=== PATIENT | female | born 1995 | race Two or more races ===

== ENCOUNTER 2024-09-07 15:34 | Outpatient (AMB) | payer MEDICARE, SELFPAY ==
[2024-09-07 15:55] VITALS: BP 104/67; PULSE 84; RESP 16; TEMP 36.2; O2SAT 99
--- NOTE | 2024-09-07 15:55 | OBCLNT_ITS ---
Vital Signs 09/07/24 15:55 Weight 50.887 kg Weight Measurement Method Standing Scale BP 104/67 Blood Pressure Source Automatic Cuff Blood Pressure Location Left Upper Arm Position Sitting Respiration 16 Pulse 84 Pulse Source Monitor Temp 97.2 F Temp Source Oral Pulse Oximetry (%) 99 Oxygen Delivery Method Room Air Allergies/Home Meds Allergies & Medications Allergies No Known Allergies Allergy (Verified 09/07/24 15:56) Medication Reconciliation No Known Home Medications 09/07/24 [History Confirmed 09/07/24] Intake Visit Data Collection New Patient or Established: New Patient (never been to [facility]) Reason for Visit:: Seen by Clinical Staff ONLY (RN/MA): No Quality Assurance Tester Required: No Do You Feel Safe at Home: Yes Authorities Contacted: N/A PCP or OBGYN visit in last 3 months: No Hx Now: Yes Are you currently on any form of Control: No Last menstrual period: 03/04/24 Pain Present Currently: No Pain Scale Used: Garcia-Romero/Numerical Pain scale:: 0 Smoking Status Smoking Status: Never smoker Questionnaires Covid-19 Vaccine Questionnaire Has patient been vacinated for Covid-19 Have you been vacinated for Covid-19: No PHQ-9 PHQ-2 Over the last 2 weeks, how often have you been bothered by any of the following problems? 1. Little interest or pleasure in doing things: not at all 2. Feeling down, depressed, or hopeless: not at all Total score: 0 PHQ-9 3. Trouble falling or staying asleep, or sleeping too much: Not at all 4. Feeling tired or having little energy: Not at all 5. Poor appetite or overeating: Not at all 6. Feeling bad about yourself - or that you are a failure or have let yourself or your family down: Not at all 7. Trouble concentrating on things, such as reading the newspaper or watching television: Not at all 8. Moving or speaking so slowly that other people could have noticed? - Or the opposite - being so fidgety or restless that you have been moving around a lot more than usual: not at all 9. Thoughts that you would be better off or of hurting yourself in some way: Not at all Total score: 0 If you checked off any problems, how difficult have these problems made it for you to do your work, take care of things at home, or get along with other people?: not difficult at all Source: Developed by Drs. Nathaniel Teran, Yanna Do, Raj Avilez and colleagues, with an educational patsy from [employer]. Depression screen completed yes Social History Living Situation History Marital Status: Lives With: Family Housing: House Tobacco History Smoking Status: Never smoker Second Hand Smoke Exposure: No Alcohol History Alcohol Intake: Never Domestic Abuse History Do You Feel Safe at Home: Yes Past Medical History Past Medical History Have you ever been diagnosed with any of the following: History of Present Illness HPI Narrative This is a 29-year-old 4 para 3 Ab0. For her first visit here at [facility] OB clinic. Patient is a transfer care from [facility]. Her last period is March 04, 2024. Gives due date December 07, 2024. Patient has a history of 2 C-sections and 1 . Patient had a her first baby then she had a . And then a repeat in [place] her last as well. That was for tachycardia. Patient denies social habits. Denies surgery. Denies any chronic illnesses. Reports to be in good health. Patient is happy about the . Denies labor complaints. Reports good movement. Denies any OB complaints at this time. She has a follow- up maternal- medicine referral October 13. And she does not have any records available yet OB Initial Visit OB Flowsheet OB Flowsheet Initial Weight: Not Recorded Date -?-?-?-?-?-?-?-?-?-?-?-?- EGA Weight Edema CTX Effacement BP Fundal ht Pres Dilation Effacement Station Visit Note Alb Glu FHR Mov 09/07/24 -?-?-?-?-?-?-?-?-?-?--?-?- 26w 5d 50.887 kg absent absent 104/67 27 unknown 4 para 3 for initial OB appointment. Patient is a transfer care from [facility]. IUP at 27 weeks. No records available at this time. Patient has been going to [facility] in [place] for evaluation and follow-up on ultrasounds. Denies social habits. And denies any chronic illness. No complaints of labor. Reports good movement. Patient is compliant with vitamins and no OB complaints at this time. Ordered third trimester labs. Advised on medical release of records from [facility]. And patient has a follow-up [facility] October 13. And will schedule with OB at 32 weeks. Return in 3 weeks visit 4 para 3 for initial OB appointment. Patient is a transfer care from [facility]. IUP at 27 weeks. Previous c/s x2. No records available at this time. Patient has been going to [facility] in [place] for evaluation and follow-up on ultrasounds. Denies social habits. And denies any chronic illness. No complaints of labor. Reports good movement. Patient is compliant with vitamins and no OB complaints at this time. Ordered third trimester labs. Advised on medical release of records from [facility]. And patient has a follow-up [facility] October 13. And will schedule with OB at 32 weeks. Return in 3 weeks visit 146 active Menstrual History Menstrual reliability: definite Flow: normal Menstrual regularity: regular Monthly: Yes Age at menarche: 10 On control pills at conception: No Associated symptoms (LMP): Reports nausea OB History : 4 Para: 3 Hx # Pregnancies: 0 Hx Total # of Abortions (Spontaneous & Elective): 0 # of Living Children: 3 Delivery History 1st : date: 09/23/16 sex: male Delivery type: History of depression before or after : No 2nd : date: 03/23/20 sex: male Delivery type: History of depression before or after : No 3rd : date: 08/31/21 sex: male Delivery type: Delivery complications: repeat c/s in [place] for tachycardia History of depression before or after : No Infection History & Risk Evaluation History of STDs: none HIV risk evaluation: low risk Hepatitis B risk evaluation: low risk Patient or partner has history of Genital Herpes: No Genetic Screening & History Genetic Screening/Teratology Counseling - Includes patient, baby's father, or anyone in either family with: 1. Patient's age 35 years or older as of estimated date of delivery: No 2. Thalassemia (Ukrainian, Emirati, Mediterranean, or Background); MCV less than 80: No 3. Neural Tube Defect (Meningomyelocele, Spina Bifida, or Anencephaly): No 4. Congenital Heart Defect: No 5. Down Syndrome: No 6. Luis Angel-Sachs (Ashkenazi Church, Cajun, [place]): No 7. Kellie Disease (Ashkenazi Church): No 8. Familial Dysautonomia (Ashkenazi Church): No 9. Sickle Cell Disease or Trait (): No 10. Hemophilia or other blood disorders: No 11. Muscular Dystrophy: No 12. Cystic Fibrosis: No 13. Mariann's Chorea: No 14. Mental Retardation/Autism: No 15. Other inherited genetic or chromosomal disorder: No 16. Maternal Metabolic Disorder (EG,TYPE 1 Diabetes, PKU): No 17. Patient or baby's father had a child with defects not listed above: No 18. Recurrent loss or a stillbirth: No 19. Medications (including supplements, vitamins, herbs or otc drugs)/illicit/recreational drugs/alcohol since last menstrual period: No 20. Any other: No Infection History 1. Live with someone with TB or exposed to TB: No 2. Rash or viral illness since last menstrual period: No 3. Hepatitis B,C: No Other (see comments) Source: [employer] Review of Systems Review of Systems Systems Reviewed: All systems reviewed, normal except as documented Gastrointestinal Gastrointestinal: Reports nausea Exam General Limitations: no limitations General Appearance: alert, in no apparent distress, comfortable, cooperative, healthy appearing, well developed and well groomed Head Head exam: atraumatic, normocephalic and normal inspection Chest Chest inspection: Present normal inspection and symmetric chest wall rise Resp Respiratory exam: Present normal lung sounds bilaterally Card Cardiovascular exam: Present regular rate, normal rhythm and normal heart sounds Abdominal Abdominal exam: Present soft (gravid abdomen, FH: 27, fht: 146), normal bowel sounds and scar (vertical skin incision) Psych Psychiatric exam: Present normal affect and normal mood Skin Skin exam: Present warm, dry, intact and normal color Assessment & Plan Diagnosis / Problem List (1) Normal in multigravida in second trimester: Status: Acute (2) Previous section complicating : Status: Acute Plan Advised patient to sign medical release of records and go to [facility] to pickle pumper her records. Ordered third trimester labs. Keep follow-up appointment with maternal- medicine October 13. Reviewed signs symptoms of labor. Increase fluids. Continue vitamins. Discussed diet and exercise. I will call [facility] for sono results. Return in 3 weeks for OB check Office Procedures OB Clinic LOC & Office Proc's Nursing/Assessment Patient Status: Initial/New Patient OB Clinic Nursing Assessment: BP Monitoring, Medication Reconciliation, Update PMH in EMR and Vital Signs OB Clinic Coordination of Care: Consent,records obtained, informed consent, Education Simp Pt/Fam, Lab and Imaging orders and Staff clarify orders New Patient Charge New Patient Point Assignment: [id number] New Patient Point Charge: SCIENTIFIC AFFAIRS MANAGER Level 3 ([id number])
== END 2024-09-07 16:11 | disposition home or self-care (01) ==
LOC: HODSOBC 15:34
PROVIDERS: Referring Provider Advanced Practice Midwife; Supervising Provider Obstetrics & Gynecology; Visit Provider Advanced Practice Midwife
DX: O09.292 Supervision of pregnancy with other poor reproductive or obstetric history, second trimester (principal); Z3A.26 26 weeks gestation of pregnancy; O34.219 Maternal care for unspecified type scar from previous cesarean delivery; Z87.59 Personal history of other complications of pregnancy, childbirth and the puerperium
CPT/HCPCS: 99203; G0463

== ENCOUNTER 2024-11-26 23:04 | Inpatient (IN) | payer MEDICAID, SELFPAY ==
[2024-11-26 23:10] VITALS: BP 120/80; PULSE 83; RESP 100; RESP 17; TEMP 36.7
[2024-11-26 23:18] VITALS: BP 120/80; PULSE 83
[2024-11-26 23:25] VITALS: BMI 27.6
[2024-11-26 23:46] VITALS: BMI 27.6
[2024-11-26 23:49] VITALS: BP 107/61; PULSE 73
[2024-11-27] VITALS (19 sets, daily range): BP systolic 96–122; BP diastolic 56–78; PULSE 59–71; RESP 14–24; TEMP 35.9–37.2; O2SAT 93–100
--- NOTE | 2024-11-27 00:03 | ESHP_ITS ---
Documentation for date of: 11/27/24 OB Labor/Induct. HPI History of Present Illness Chief complaint: Contractions : 4 Para: 3 pregnancies: 0 Living children: 3 History of Abortions: Spontaneous and Elective: 0 History of Vaginal deliveries: 1 History of sections: Yes History of : Yes SAIMA: 12/09/24 Gestational Age (weeks): 38 Gestational Age (days): 2 History of present illness: 29-year-old 4 para 3 with a history of done then repeat presented to labor and delivery triage with contractions every 5 minutes. Patient initially started care at [facility] and then later transferred care and was seen with Rayna Hickman at the [facility] clinic. Patient denies any leakage of fluid or vaginal bleeding and reports adequate movements. Labs Maternal Blood Type: B Pos Labs: Positive: Rubella Titre and Group Beta Strep (Positive urine culture), Negative: RPR, Hepatitis B, HIV, Chlamydia and Gonorrhea and Unknown: Herpes Type 1, Herpes Type 2 and Covid-19 Review of Systems Review of Systems Systems Reviewed: All systems reviewed, normal except as documented Past Medical History Surgical History SURGICAL: Positive Section Meds Home Medications and Allergies Home Medications ?Medication ?Instructions ?Recorded ?Confirmed ?Type vits no.130-ferrous fum 1 tab PO QDAY 5 11/26/24 History 27 mg iron-folic acid 800 mcg tablet ( Vitamin) Allergies Allergy/AdvReac Type Severity Reaction Status Date / Time No Known Allergies Allergy Verified 11/26/24 23:44 OB Exam Physical Exam Vital signs: Pulse BP 73 107/61 11/26/24 23:49 11/26/24 23:49 Constitutional Constitutional: no acute distress Routine HEENT Exam Head: Present normocephalic and atraumatic Eye: Present EOMI and PERRL ENT: Present mucous membranes moist Routine Neck Exam Neck: Present supple and trachea midline Routine Cardiovascular Exam Cardiovascular: Present RRR Routine Abdominal Exam Abdominal: Present soft and normoactive bowel sounds Detailed Labor and Delivery Exam Dilation (cm): 3 Effacement (%): 50 Cervix position: mid station: -3 Consistency: soft Presentation: Vertex Baseline heart rate: 145 monitor accelerations: 15x15 monitor decelerations: None Contraction frequency (min): 5 Routine Extremities Exam Extremities: Present full ROM Routine Skin Exam Skin: Present intact, dry and warm Routine Neurological Exam Neurological: Present alert, oriented X3 and CN II-XII intact Routine Psychiatric Exam Psychiatric: Present normal affect and normal thought process OB Assessment & Plan Assessment and Plan (1) Previous section complicating : Status: Acute Assessment and plan: Admit to inpatient status for repeat low transverse IV access, CBC, type and screen, LR at 125, RPR, COVID-19 test GBS negative Ancef 2 g prior to surgery start Copeland catheter to drainage SCDs for DVT prophylaxis Anesthesia to preop for spinal anesthesia Scheduled for surgery. (2) Group B Streptococcus carrier state affecting : Status: Acute
[2024-11-27] MEDS: RINGERS LACTATED 1000 ML 1,000 ML 100 ML IV (00:10)
[2024-11-27] MEDS: FAMOTIDINE INJ 10 MG/ML VIAL 2 ML 20 MG IV (00:10)
[2024-11-27] MEDS: CITRIC ACID/SODIUM CITR 15 ML UDC (BICITRA) 30 ML PO (00:11)
[2024-11-27] MEDS: ceFAZolin/D5W 2 GM IV 2 GM/100 ML BAG IV (00:11)
[2024-11-27 00:19] LABS: Basophils # (Auto) 0.0 Thou/mm3 (0.0-0.2); Basophils % (Auto) 0 % (0-2.5); Eosinophils # (Auto) 0.1 Thou/mm3 (0.0-0.5); Eosinophils % (Auto) 2 % (0-10); Hematocrit 24.9 % (36.0-46.0); Immature Granulocytes Auto 0.03 Thou/mm3 (0.00-0.00); Lymphocytes # (Auto) 2.1 Thou/mm3 (1.0-4.8); Lymphocytes % (Auto) 34 % (10-50); Mean Corpuscular HGB Conc 31.7 g/dl (31.0-37.0); Mean Corpuscular Hemoglobin 24.9 pg (25.0-35.0); Mean Corpuscular Volume 79 fL (80-100); Monocytes # (Auto) 0.4 Thou/mm3 (0.0-0.8); Monocytes % (Auto) 7 % (0-12); Neutrophils # (Auto) 3.4 Thou/mm3 (1.8-7.7); Neutrophils % (Auto) 56 % (37-80); Nucleated Red Blood Cell # 0.06 Thou/mm3 (0.00-0.00); Nucleated Red Blood Cell % 1 /100 WBC (0); Platelet Count 253 Thou/mm3 (140-440); RDW Standard Deviation 49.1 fL (36.4-46.3); Red Blood Count 3.17 Miln/mm3 (4.00-5.20); White Blood Count 6.1 Thou/mm3 (3.6-11.0)
[2024-11-27 00:24] LABS: Hemoglobin 7.9 g/dL (12.0-16.0)
[2024-11-27 00:48] LABS: Syphilis Nonreactive (Nonreactive)
--- NOTE | 2024-11-27 01:09 | PD.GYNPROC ---
Operative Note - ADAPTED PHYSICAL EDUCATION SPECIALIST Procedure Date of procedure: 11/27/24 Procedure Performed: Repeat section with vertical skin and transverse uterine incision Indication: 29-year-old at 38 weeks and 2 days with previous x 2 in labor Anesthesia type: General Procedure description: Informed consent was obtained. The patient was brought to the operating room and identified with two patient identifiers. She was placed in the supine position, and spinal anesthesia was administered. After confirming adequate anesthesia, the abdomen and perineum were prepped and draped in the usual sterile fashion. A Copeland catheter was inserted for continuous bladder drainage. A vertical midline skin incision was made using a scalpel and carried through subcutaneous tissue to the rectus fascia. The previous skin scar was identified and excised in its entirety. The fascia was incised vertically and dissected off the rectus muscles both superiorly and inferiorly. The rectus bellies were in the midline, and the peritoneum was entered bluntly with the surgeon?s finger. The peritoneal opening was extended to allow adequate exposure. An Mk O-ring retractor was placed for optimal visualization. The lower uterine segment was palpated, and the bladder flap was reflected inferiorly. A low transverse uterine incision (Blanche Nair) was made with a scalpel and extended bluntly. The amniotic membranes were ruptured, and clear fluid was released. The fetus was in vertex presentation. The shoulders and body were delivered smoothly with gentle fundal pressure. The umbilical cord was doubly clamped and cut, and the infant was handed to the awaiting team. Cord gases were obtained. The placenta was delivered with gentle traction on the cord. The uterine cavity was cleared of membranes and clots. The hysterotomy angles were secured with Allis clamps. The uterine incision was closed in two layers using #1 Monocryl: the first layer was a running locked suture to approximate the myometrium, and the second layer imbricated the serosa and myometrium. Hemostasis was confirmed. The Mk retractor was removed. Peritoneal edges and rectus muscles were reapproximated. Rectus fascia was closed with running 0 Vicryl. The subcutaneous tissue was irrigated with warm saline, and bleeding points were cauterized using Bovie electrocautery. Subcutaneous tissue was approximated with 3-0 Vicryl. The skin was closed using phan. A sterile dressing was applied. The patient was cleaned, undraped, and transferred to the recovery room in stable and awake condition. She tolerated the procedure well. No complications were encountered. All counts were correct ?2. Estimated blood loss (ml): 700 Complications: none Diagnosis Discharge Diagnosis (1) Group B Streptococcus carrier state affecting : Status: Acute (2) Previous section complicating : Status: Acute (3) Normal in multigravida in second trimester: Status: Acute Problem List Completed Was Problem List Reviewed/Reconciled?: Yes
--- NOTE | 2024-11-27 01:12 | PD.LDDELS ---
Data (Alicea) Data Hx Section: Yes : 4 Term: 3 : 0 Livin Abortions: Spontaneous & Theraputic: 0 Delivery Data (Alicea) Delivery Data Delivered by: DINESH Anesthesia Type Anesthesia type: General
[2024-11-27] MEDS: HYDROmorphone 1 MG/ML PCA SYRINGE 30ML PCA (03:03)
[2024-11-27] MEDS: OXYTOCIN in NS 20 units 20 UNIT/1,000 ML BAG 125 UNIT IV ×2 (05:34→15:37)
--- NOTE | 2024-11-27 08:32 | PD.LDDELS ---
Data (Alicea) Data Hx Section: Yes : 4 Term: 3 : 0 Livin Abortions: Spontaneous & Theraputic: 0 Delivery Data (Alicea) Labor Data Induction/Augmentation Agent: None ROM date: 11/27/24 ROM time: 00:41 Amniotic membrane rupture type: Artificial Amniotic fluid description: Clear Delivery Data Onset of labor date: 11/27/24 Onset of labor time: 00:41 Complete dilation date: 11/27/24 Complete dilation time: 00:41 [place] delivery date: 11/27/24 delivery time: 00:41 Placenta delivery date: 11/27/24 Placenta delivery time: 00:42 Stage 1 total time: Labor - Stage 1 Duration 0 minutes Delivered by: DINESH Delivery nurse: Aime Gomes nurse: Jim WOODARD Phlebotomy Lab Assistant at delivery: No Other staff at delivery: DR MONITEL, NAILA PERDUE, MADELINE Torres RT, AGUILAR Bunn CRNA Delivery Method Delivery method: Classical Presentation: Vertex Anesthesia Type Anesthesia Type: General and Spinal Anesthesia type: General Placenta Placenta delivery description: Manual Removal Cord blood sent to lab: Yes cord blood collection: Cord Blood Type Episiotomy Episiotomy description: None Umbilical Cord cord description: 3 Vessels Data (Alicea) Data order: 1 [place]'s gender: Female weight (gms): 3000 g Weight (pounds): 6 lbs and 9.8 ozs [place] length: 50.8 cm 1 minute: 8 5 minutes: 9
[2024-11-27 12:12] LABS: Basophils # (Auto) 0.0 Thou/mm3 (0.0-0.2); Basophils % (Auto) 0 % (0-2.5); Eosinophils # (Auto) 0.0 Thou/mm3 (0.0-0.5); Eosinophils % (Auto) 0 % (0-10); Hematocrit 29.1 % (36.0-46.0); Hemoglobin 9.7 g/dL (12.0-16.0); Immature Granulocytes Auto 0.06 Thou/mm3 (0.00-0.00); Lymphocytes # (Auto) 1.3 Thou/mm3 (1.0-4.8); Lymphocytes % (Auto) 9 % (10-50); Mean Corpuscular HGB Conc 33.3 g/dl (31.0-37.0); Mean Corpuscular Hemoglobin 26.8 pg (25.0-35.0); Mean Corpuscular Volume 80 fL (80-100); Monocytes # (Auto) 0.4 Thou/mm3 (0.0-0.8); Monocytes % (Auto) 3 % (0-12); Neutrophils # (Auto) 12.5 Thou/mm3 (1.8-7.7); Neutrophils % (Auto) 88 % (37-80); Nucleated Red Blood Cell # 0.03 Thou/mm3 (0.00-0.00); Nucleated Red Blood Cell % 0 /100 WBC (0); Platelet Count 210 Thou/mm3 (140-440); RDW Standard Deviation 47.6 fL (36.4-46.3); Red Blood Count 3.62 Miln/mm3 (4.00-5.20); White Blood Count 14.2 Thou/mm3 (3.6-11.0)
[2024-11-27] MEDS: IBUPROFEN TAB 400 MG TABLET 800 MG PO (19:16)
[2024-11-28] VITALS (7 sets, daily range): BP systolic 101–110; BP diastolic 57–71; PULSE 69–79; RESP 16–18; TEMP 36.6–37.1; O2SAT 95–99
[2024-11-28] MEDS: IBUPROFEN TAB 400 MG TABLET 800 MG PO ×2 (04:58→23:36)
--- NOTE | 2024-11-28 06:56 | ESPR_ITS ---
RE: ROSALIO JOSHI : 1995 DATE OF SERVICE: 11/28/2024 Postop day #1. The patient denies any problem or complaint. She is voiding. She is ambulating. She is tolerating diet. She is passing flatus. She denies any excessive vaginal bleeding. She denies any dizziness or lightheadedness. She denies any chest pain, palpitations, shortness of breath or lower extremity pain. OBJECTIVE: Vital Signs: Blood pressure 102/62, heart rate 72, respirations 16, temperature is 98.7, pulse oximetry is 95% on 1 L of O2. Lungs: Clear to auscultation bilaterally. Heart: Regular rate and rhythm. Abdomen: Nondistended. Dressing dry and intact. Fundus is firm. Extremities: Nontender. Hemoglobin is 9.7. ASSESSMENT: Postoperative day #1, status post delivery. PLAN: Remove dressing, encourage ambulation, support, possible discharge home tomorrow. DT: 06:49:12 TT: 06:54:00 Ref: [id number] - TID: [id number]
[2024-11-28] MEDS: HYDROcodone/APAP 5/325 TABLET 2 TAB PO ×2 (08:14→15:13)
[2024-11-28] MEDS: DOCUSATE SOD 100 MG CAPSULE PO (08:15)
[2024-11-29 04:08] VITALS: BP 103/63; PULSE 68; RESP 17; TEMP 36.9; O2SAT 96
[2024-11-29 07:37] VITALS: BP 100/56; PULSE 70; RESP 20; TEMP 36.7; O2SAT 96
[2024-11-29] MEDS: DOCUSATE SOD 100 MG CAPSULE PO (07:54)
[2024-11-29] MEDS: IBUPROFEN TAB 400 MG TABLET 800 MG PO (07:54)
--- NOTE | 2024-11-29 08:06 | ESPR_ITS ---
Subjective Subjective Interval history: Patient is a 29-year-old G4 now P4004 status post repeat #3 at 3:00 in the morning on November 27, [address] Castellanos. She had a history of x 2 in the past. She had a vertical skin incision and her was done through a vertical skin incision. She had an attempted spinal and then underwent general anesthesia per notes. She was anemic on admission with a hemoglobin of 7.9 she did receive 2 units of blood and her hemoglobin now is 9.7. [facility] and transferred to [facility] at the [facility]. She is [place]-speaking only. This morning she is resting comfortably in bed with her at bedside. The baby is at bedside. All interview and exam is performed through an official translating service. Exam Vital Signs Temp Pulse Resp BP Pulse Ox O2 Del Method O2 Flow Rate 98.4 F 68 17 103/63 96 Room Air 1 11/29/24 04:08 11/29/24 04:08 11/29/24 04:08 11/29/24 04:08 11/29/24 04:08 11/29/24 04:08 11/28/24 04:25 FiO2 100 11/28/24 04:25 Narrative Exam Patient is alert and oriented x 3 in no apparent distress. Vital signs are stable. Predelivery hemoglobin 7.9 she got 2 units of blood postdelivery 9.7. Fundus is firm nontender and at her umbilicus, her vertical incision is closed with phan and is clean dry and intact extremities show no significant edema or erythema. Objective Labs 11/27/24 12:00 Assessment & Plan Problem List (1) Previous section complicating : Status: Acute Assessment and plan: Postoperative day #2 status post repeat section stable, discharge instructions given. Please see discharge summary for further information. (2) Anemia affecting : Status: Acute Assessment and plan: Patient is status post 2 units of packed red blood cells on admission. Hemoglobin is stable at 9.7. (3) Delivery by section of full-term : Status: Acute Assessment and plan: Discharge home postoperative day #2 in stable condition discharge instructions given including no heavy lifting, intercourse, tampons, douching x 6 weeks. No bathtubs or swimming. Return to clinic in 1 week from surgery to get phan removed. Discharge medications explained to patient. All questions were answered. Time Spent With Patient Time: Total time spent is greater than 50% in coordination of care (as documented) at patient's floor/unit and/or counseling patient: Time with patient: less than 15 minutes
--- NOTE | 2024-11-29 08:17 | ESDS_ITS ---
DS: Providers Provider Date of admission: 11/26/24 23:34 Primary care physician: Physician No Primary/Family Admitting Provider: Yash Castellanos MD Attending Provider on Admission: Shayan Merrill MD Consults: 11/27/24 01:32 Referral Routine Comment: Attending Provider on DC: Vero Crane MD ([facility]) Discharging Provider: Vero Crane MD ([facility]) Anticipated date of discharge: 11/29/24 DS: Diagnosis Discharge Diagnosis (1) Delivery by section of full-term : Status: Acute Assessment & Plan: Discharged home postoperative day #2 in stable condition discharge instructions given (2) Anemia affecting : Status: Acute Assessment & Plan: Predelivery hemoglobin 7.9 status post 2 units of packed red blood cells. Hemoglobin stable after delivery. Problem List Completed Was Problem List Reviewed/Reconciled?: Yes Summary/Hosp Course Brief History: 29-year-old 4 para 3 with a history of done then repeat presented to labor and delivery triage with contractions every 5 minutes. Patient initially started care at [facility] and then later transferred care and was seen with Rayna Hickman at the [facility] clinic. Patient denies any leakage of fluid or vaginal bleeding and reports adequate movements. Patient was admitted by Dr. Mixon. She had a history of x 2. She was consented for repeat low-transverse section and underwent a repeat at 3:00 in the morning on 12/27/2024. Please see op report for further details. Patient underwent a spinal converted to a general anesthesia. Predelivery hemoglobin 7.9, patient was transfused 2 units of packed red blood cells. Postdelivery hemoglobin 9.7. Patient an uncomplicated postoperative course. She was ambulating, tolerating a general diet, passing flatus, having minimal bleeding, without fevers or chills postoperative day #2. She was discharged home postoperative day #2 in stable condition. She has a vertical skin incision closed with phan, she needs to have these removed in the [facility] clinic in 1 week. Pain medications including [place] 1-2 p.o. every 4-6 hours as needed pain #30 no refills ibuprofen 800 mg every 8 hours as needed pain. Colace 100 twice daily. Peripartum Data Delivery Method: Low Transverse (With vertical skin incision) Episiotomy Description: None Procedures: Procedures Operation Date: 11/27/24 00:45 Actual Procedure Side Surgeon p in OB Yash Castellanos MD complications: none Status at Discharge Cognitive/behavioral status at discharge: Patient is alert and oriented x 3 in no apparent distress. Functional status at discharge: independent ambulation Overall status at discharge: patient is progressing back to baseline Time Spent with Patient Time attestation: Total time spent providing and/or coordinating discharge services: Time spent: Less than 30 minutes Specific discharge activities: No heavy lifting, intercourse, tampons, douching, bathtubs x 6 weeks. Follow-up in 1 week to remove phan at [facility] clinic Exam Vital Signs Temp Pulse Resp BP Pulse Ox O2 Del Method O2 Flow Rate 98.1 F 70 20 100/56 L 96 Room Air 1 11/29/24 07:37 11/29/24 07:37 11/29/24 07:37 11/29/24 07:37 11/29/24 07:37 11/29/24 07:37 11/28/24 04:25 FiO2 100 11/28/24 04:25 Narrative Exam Patient is alert and oriented x 3 no apparent distress. Fundus is firm. Fundus is at umbilicus, incision is clean dry and intact. [place] in place. No significant edema or erythema Discharge Plan Plan Patient Disposition: HOME (Self Care) Disposition Comment: Stable Prescriptions/Referrals Prescriptions/Med Rec: New hydrocodone-acetaminophen 5-325 mg Tablet 2 tab PO Q6HR MDD 8 PRN (Reason: Patient rated pain 9 to 10) Qty: 30 0RF ibuprofen 400 mg Tablet 800 mg PO Q8HR PRN (Reason: Pain Scale 4-6 (Moderate) Qty: 60 0RF docusate sodium 100 mg Capsule 100 mg PO QDAY Qty: 30 0RF No Action Vitamin 27 mg iron- 800 mcg tablet 1 tab PO QDAY Referrals: No Primary/Family,Physician [Primary Care Provider] - Patient/Caregiver Discharge Instructions Discharge Activity: activity as tolerated Other Discharge Activity Instructions:: No heavy lifting, intercourse, tampons, swimming, bathtubs x 6 weeks Other Discharge Diet Instructions: General Diet as tolerated Education Materials: After a , Feel Healthy After Print Language: [place] Stand Alone Forms: Berta Award Info., Patient Portal Info Letter Discharge Order Discharge Orders: Discharge (Routine); Ordered 11/29/24 Ordered By: Vero Crane ([facility]) Planned Discharge Date 11/29/24 (2) Anemia affecting Qualifiers: Trimester: third trimester Qualified Code(s): O99.013 - Anemia complicating , third trimester
[2024-11-29] MEDS: ACETAMINOPHEN 325 MG TABLET 650 MG PO (12:59)
== END 2024-11-29 14:05 | disposition home or self-care (01) | DRG 540 ==
LOC: S4SX 11-27 00:06 → S4NX 11-27 00:35
PROVIDERS: Admitting Provider Obstetrics & Gynecology; Visit Provider Specialist
PROC: 10D00Z0 Extraction of Products of Conception, High, Open Approach (ICD-10-PCS; CPT 59514; principal; 2024-11-27 00:30)
DX: O34.211 Maternal care for low transverse scar from previous cesarean delivery (principal); O99.824 Streptococcus B carrier state complicating childbirth; Z37.0 Single live birth; Z3A.38 38 weeks gestation of pregnancy; O99.02 Anemia complicating childbirth
CPT/HCPCS: 36415; 85025; 86780; 86850; 86900; 86901; 86923; 94762; A4314; A4649; J0689; J1100; J2210; J2250; J2274; J2371; J2405; J2590; J2704; J3010; J3490; J7120; P9016; A9270; J2270